=== PATIENT | male | born 1960 | race Caucasian/White ===

== ENCOUNTER 2017-02-21 14:48 | Emergency (ER) | payer MEDICAID ==
--- NOTE | 2017-02-21 14:52 | EDPHY ---
H & P Time Seen by Provider: 02/21/17 14:51 HPI/ROS: CHIEF COMPLAINT: Seizure HISTORY OF PRESENT ILLNESS: Patient says he had a seizure 10 years ago when he stopped drinking. 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 He was brought in by EMS with a pre- hospital glucose of 191 and initially confused. On arrival he has no medical complaints. REVIEW OF SYSTEMS: Eye: no change in vision ENT: no sore throat Cardiac: Denies chest pain Pulmonary: no cough or SOB Abdomen: no vomiting, diarrhea, abdominal pain Musculoskeletal: no back pain, no neck pain Skin: no rash Neuro: no headache Constitutional: no fever : no urinary symptoms A comprehensive 10 point review of systems is otherwise negative aside from elements mentioned in the history of present illness. PAST MEDICAL HISTORY: Seizure 10 years ago after stopping drinking alcohol. Social history: No drugs, no alcohol for 5 years. General Appearance: Alert and conversant, cooperative. Eyes: No scleral icterus. ENT, Mouth: Normal mucous membranes. No tongue laceration or abrasion. Respiratory: Normal respiratory effort, breath sounds equal, lungs are clear to auscultation. Cardiovascular: Regular rate and rhythm. Gastrointestinal: Abdomen is soft and non tender. Neurological: Alert and oriented x3. Normally conversant. Face symmetric, normal movement and sensation in all extremities. Not tremulous, no pronator drift. Skin: Warm and dry, no rashes. Musculoskeletal: No peripheral edema and no joint swelling. neck shows full range of motion, no meningeal signs, no cervical thoracic or lumbar spine tenderness. Psychiatric: Not agitated. Emergency Department course/MDM: Patient will receive noncontrast head CT, EKG, chem 7. 1555: NS 2 liters IV, creat noted at 2.2; negative head CT, CO2 10 would be consistent with seizure. Results discussed at this time. RA O2 sat 94%. After hydration repeat labs were done. 1845: Patient's repeat creatinine 1.3, warned no driving. Feels well. Followup in [place]. Given copies of CT and labs. Heart rate 88 and oxygen saturation mid 90s on discharge. Constitutional: Initial Vital Signs Temperature (C) 37.1 C 02/21/17 14:48 Heart Rate 137 H 02/21/17 14:48 Respiratory Rate 16 02/21/17 14:48 Blood Pressure 125/88 H 02/21/17 14:48 O2 Sat (%) 87 L 02/21/17 14:48 O2 Delivery Mode Room Air Allergies/Adverse Reactions: No Known Allergies Allergy (Unverified 02/21/17 16:51) Home Medications: Medication Instructions Recorded NK [No Known Home Meds] 02/21/17 Medical Decision Making - Diagnostics EKG Interpretation: 12-lead EKG interpreted by me; official reading is in trace master. My interpretation is Sinus tachycardia rate 120 Imaging Results: Imaging Impressions Head CT 02/21/17 14:52 Impression: 1. Normal CT brain without contrast. 2. Consider MRI of the brain without and with contrast enhancement, if there is continued clinical concern. Findings and recommendations discussed with Emergency Department physician, DELICIA OKEEFE at 15:15 hour, 02/21/2017. Final report concurs with initial preliminary interpretation. Differential Diagnosis: Differential diagnosis considered for a seizure including but not limited to electrolyte abnormality, alcohol withdrawal, medication noncompliance, head injury, and breakthrough seizure. Critical Care Time: Critical care time spent by me, Dr. Okeefe, exclusively with the care of this patient was 35 minutes, exclusive of PA or INSURANCE SALES EXECUTIVE time and exclusive of separate procedures. The organ system at risk was metabolic and I ordered IV fluids, multiple diagnostic studies, labs, to address his renal failure and dehydration and to stabilize the patient and prevent worsening of the patient's condition. - Data Points Laboratory Results: Laboratory Results 02/21/17 14:50 02/21/17 17:50 02/21/17 02/21/17 02/21/17 17:50 14:50 14:50 WBC 7.94 10^3/uL 10^3/uL (3.80-9.50) RBC 4.78 10^6/uL 10^6/uL (4.40-6.38) Hgb 16.1 g/dL g/dL (13.7-17.5) Hct 49.8 % % (40.0-51.0) MCV 104.2 fL H fL (81.5-99.8) MCH 33.7 pg pg (27.9-34.1) MCHC 32.3 g/dL L g/dL (32.4-36.7) RDW 13.6 % % (11.5-15.2) Plt Count 104 10^3/uL L 10^3/uL (150-400) MPV 9.6 fL fL (8.7-11.7) Neut % (Auto) 62.9 % % (39.3-74.2) Lymph % (Auto) 21.8 % % (15.0-45.0) Hopkins % (Auto) 13.5 % H % (4.5-13.0) Eos % (Auto) 0.1 % L % (0.6-7.6) Baso % (Auto) 0.6 % % (0.3-1.7) Nucleat RBC Rel Count 0.4 % H % (0.0-0.2) Absolute Neuts (auto) 4.99 10^3/uL 10^3/uL (1.70-6.50) Absolute Lymphs (auto) 1.73 10^3/uL 10^3/uL (1.00-3.00) Absolute Monos (auto) 1.07 10^3/uL H 10^3/uL (0.30-0.80) Absolute Eos (auto) 0.01 10^3/uL L 10^3/uL (0.03-0.40) Absolute Basos (auto) 0.05 10^3/uL 10^3/uL (0.02-0.10) Absolute Nucleated RBC 0.03 10^3/uL H 10^3/uL (0-0.01) Immature Gran % 1.1 % % (0.0-1.1) Immature Gran # 0.09 10^3/uL 10^3/uL (0.00-0.10) Sodium 137 mEq/L mEq/L 140 mEq/L mEq/L (134-144) (134-144) Potassium 3.4 mEq/L L mEq/L 3.2 mEq/L L mEq/L (3.5-5.2) (3.5-5.2) Chloride 102 mEq/L mEq/L 95 mEq/L L mEq/L (97-110) (97-110) Carbon Dioxide 23 mEq/l D mEq/l 10 mEq/l L mEq/l (22-31) (22-31) Anion Gap 12 mEq/L mEq/L 35 mEq/L H mEq/L (8-16) (8-16) BUN 21 mg/dL mg/dL 21 mg/dL mg/dL (7-23) (7-23) Creatinine 1.3 mg/dL mg/dL 2.2 mg/dL H mg/dL (0.7-1.3) (0.7-1.3) Estimated GFR 57 31 Glucose 108 mg/dL H mg/dL 171 mg/dL H mg/dL (70-100) (70-100) Calcium 8.1 mg/dL L D mg/dL 10.2 mg/dL mg/dL (8.5-10.4) (8.5-10.4) Medications Given: Discontinued Medications Sodium Chloride (Ns) 1,000 mls @ 0 mls/hr IV ONCE ONE PRN Reason: Wide Open Stop: 02/21/17 15:26 Last Admin: 02/21/17 15:36 Dose: 1,000 mls Sodium Chloride (Ns) 1,000 mls @ 0 mls/hr IV ONCE ONE PRN Reason: Wide Open Stop: 02/21/17 15:26 Last Admin: 02/21/17 15:36 Dose: 1,000 mls Sodium Chloride (Ns) 1,000 mls @ 0 mls/hr IV ONCE ONE PRN Reason: Wide Open Stop: 02/21/17 16:47 Last Admin: 02/21/17 16:55 Dose: 1,000 mls Departure - Departure Disposition: Home, Routine, Self-Care Clinical Impression: Seizure disorder, Dehydration Condition: Good Instructions: Epilepsy (ED) Additional Instructions: No driving or power tools or using ladders or scaffolding, or swimming, until ok by followup MD. Referrals: Patient,NotPresent [Unknown] - As per Instructions Nadir Beard MD [Medical Doctor] - 5-7 days, if not improved
[2017-02-21 15:03] LABS: % IMMATURE GRANULYOCYTES 1.1 % (0.0-1.1); ABSOLUTE IMMATURE GRANULOCYTES 0.09 10^3/uL (0.00-0.10); ABSOLUTE NRBC COUNT 0.03 10^3/uL (0-0.01); ADD DIFF? NO; ADD MORPH? NO; ADD SCAN? NO; ATYPICAL LYMPHOCYTE FLAG 20 (0-99); FRAGMENT RBC FLAG 0 (0-99); HEMATOCRIT 49.8 % (40.0-51.0); HEMOGLOBIN 16.1 g/dL (13.7-17.5); LEFT SHIFT FLG 10 (0-99); LIPEMIA HEMOLYSIS FLAG 80 (0-99); MEAN CELL HEMOGLOBIN 33.7 pg (27.9-34.1); MEAN CELL HEMOGLOBIN CONCENTR. 32.3 g/dL (32.4-36.7); MEAN CELL VOLUME 104.2 fL (81.5-99.8); MEAN PLATELET VOLUME 9.6 fL (8.7-11.7); NRBC-AUTO% 0.4 % (0.0-0.2); PLATELET CLUMPS FLAG 0 (0-99); PLATELET COUNT 104 10^3/uL (150-400); RED BLOOD CELL COUNT 4.78 10^6/uL (4.40-6.38); RED CELL DISTRIBUTION WIDTH 13.6 % (11.5-15.2)
--- NOTE | 2017-02-21 15:12 | CPEKG ---
Heart Rate: 123 RR Interval: 488 P-R Interval: 168 QRSD Interval: 78 QT Interval: 308 QTC Interval: 441 P Cataldo: 40 QRS Cataldo: -1 T Wave Cataldo: 14 EKG Severity - OTHERWISE NORMAL ECG - EKG Impression: SINUS TACHYCARDIA Electronically Signed By: Rober Foster 21-Feb-2017 15:41:43
[2017-02-21 15:13] LABS: ANION GAP 35 mEq/L (8-16); CALCIUM 10.2 mg/dL (8.5-10.4); CARBON DIOXIDE 10 mEq/l (22-31); CHLORIDE 95 mEq/L (97-110); CREATININE 2.2 mg/dL (0.7-1.3); GLOMERULAR FILTRATION RATE 31; GLUCOSE 171 mg/dL (70-100); POTASSIUM 3.2 mEq/L (3.5-5.2); SODIUM 140 mEq/L (134-144)
[2017-02-21] MEDS ORDERED: NS 1,000 ML IV ONE ×3 (15:25→16:46)
[2017-02-21 18:14] LABS: ANION GAP 12 mEq/L (8-16); CALCIUM 8.1 mg/dL (8.5-10.4); CARBON DIOXIDE 23 mEq/l (22-31); CHLORIDE 102 mEq/L (97-110); CREATININE 1.3 mg/dL (0.7-1.3); GLOMERULAR FILTRATION RATE 57; GLUCOSE 108 mg/dL (70-100); POTASSIUM 3.4 mEq/L (3.5-5.2); SODIUM 137 mEq/L (134-144)
[2017-02-21 18:54] VITALS: BP 114/85; PULSE 88; RESP 17; TEMP 97.9; O2SAT 95
== END 2017-02-21 19:17 | disposition home or self-care (01) ==
DX: G40.909 Epilepsy, unspecified, not intractable, without status epilepticus (principal); E86.0 Dehydration